=== PATIENT | female | born 1980 | race Caucasian/White ===

== ENCOUNTER 2024-07-23 14:16 | Emergency (ER) | payer MEDICAID ==
[~2024-07-23] VITALS: Ht 160 cm; Wt 74.8 kg
[2024-07-23 14:21] VITALS: O2SAT 99
[2024-07-23 14:28] VITALS: BP 144/68; PULSE 57; RESP 13; TEMP 98; O2SAT 99
== END 2024-07-23 16:28 | disposition home or self-care (01) ==
LOC: ER 14:16
DX: R23.2 Flushing (principal)
CPT/HCPCS: 99281

== ENCOUNTER 2024-11-11 20:49 | Emergency (ER) | payer MEDICAID ==
[~2024-11-11] VITALS: Ht 160 cm; Wt 82.0 kg
[2024-11-11 21:00] VITALS: TEMP 36.8; O2SAT 99
[2024-11-11 21:06] VITALS: O2SAT 99
[2024-11-11 21:58] VITALS: BP 132/85; PULSE 70; RESP 18
[2024-11-11] MEDS: KETOROLAC 30MG/ML VIAL IM ONE (21:58)
[2024-11-11 22:04] LABS: CLARITY URINE TURBID (CLEAR); COLOR URINE ORANGE (YELLOW); GLUCOSE URINE NEGATIVE (NEGATIVE); KETONES URINE NEGATIVE (NEGATIVE); LEUKOCYTE ESTERASE URINE 2+ (NEGATIVE); NITRITE URINE POSITIVE (NEGATIVE); OCCULT BLOOD URINE 3+ (NEGATIVE); PROTEIN URINE 2+ (NEGATIVE); SPECIFIC GRAVITY URINE 1.021 (1.005-1.030)
[2024-11-11 22:22] LABS: BACTERIA URINE 1+; SQUAMOUS EPITHELIAL CELL URINE 1+ /lpf (RARE/1+)
[2024-11-11] MEDS ORDERED: NITR100C MT (23:09)
[2024-11-11] MEDS ORDERED: PYR200 MT (23:09)
== END 2024-11-11 23:44 | disposition home or self-care (01) ==
LOC: ER 20:49
DX: N39.0 Urinary tract infection, site not specified (principal); Z90.49 Acquired absence of other specified parts of digestive tract; Z92.0 Personal history of contraception
CPT/HCPCS: 99285; 76830; 76856; 81003; 81025; 96372; J1885